=== PATIENT | female | born 1960 | race African-American/Black ===

== ENCOUNTER 2021-04-04 11:49 | Outpatient (CLI) | payer OTHER | END 2021-04-04 11:50 | disposition home or self-care (01) | LOC: BICRAD 11:49 | PROVIDERS: ATTEND Family Medicine | DX: M25.452 Effusion, left hip (principal) ==

== ENCOUNTER 2021-06-13 11:14 | Outpatient (CLI) | payer OTHER | END 2021-06-13 11:15 | disposition home or self-care (01) | LOC: BICRAD 11:14 | PROVIDERS: ATTEND Family Medicine | DX: M25.511 Pain in right shoulder (principal); M19.011 Primary osteoarthritis, right shoulder ==

== ENCOUNTER 2022-06-11 10:43 | Outpatient (CLI) | payer OTHER | END 2022-06-11 10:44 | disposition home or self-care (01) | LOC: BICRAD 10:43 | PROVIDERS: ATTEND Family Medicine | DX: M25.562 Pain in left knee (principal); M17.12 Unilateral primary osteoarthritis, left knee | CPT/HCPCS: 36415; 80053; 82306; 84443 ==

== ENCOUNTER 2023-05-14 11:59 | Outpatient (CLI) | payer OTHER | END 2023-05-14 12:00 | disposition home or self-care (01) | LOC: BICRAD 11:59 | PROVIDERS: ATTEND Nurse Practitioner Family | DX: M79.672 Pain in left foot (principal) ==